=== PATIENT | female | born 1940 | race Caucasian/White ===

== ENCOUNTER 2018-09-01 05:37 | Day surgery (SDC) | payer OTHER, MEDICARE ==
[~2018-09-01] VITALS: Ht 160 cm; Wt 68.0 kg
[~2018-09-01 05:37] MED LIST: AMLODIPINE BESY10 MG PO; ARICEPT10 M1 PO; COZAAR100 MG PO; IFEREX 150150 MG PO; LOPRESSOR50 PO; MIRAPEX0.125 MG PO; PRINIVIL20 MG PO; PROTONIX40 M1 PO; TEMAZEPAM30 MG PO; ZOCOR20 MG PO
[2018-09-01 06:59] VITALS: BP 183/61
[2018-09-01] MEDS ORDERED: ASA5UEC PO (09:23)
[2018-09-01] MEDS ORDERED: NORCO 7.5-3251 EACH PO (09:23)
[2018-09-01 09:33] VITALS: BP 183/61
--- NOTE | 2018-09-03 17:30 | EKG ---
[place] [address] [place] [address] ELECTROCARDIOGRAM REPORT Name: ROSARIO CAMILO Room #: [facility]#: [id number] Admission: 09/01/18 Attend Phys: Guilherme Caicedo MD Discharge: 09/01/18 Date of : 44 Report #: [id number] THIS REPORT FOR: //name// [facility] Test Date: 2018-09-01 Test Time: 06:41:21 Pat Name: ROSARIO CAMILO Department: Room: 150 1 Gender: F Confectionery Maker: NGOC : 1940 Requested By: Sarahi Jj Order Number: [id number] MD: Osmin Clement Measurements Intervals [place] Rate: 40 P: 4 VT: 209 QRS: -20 QRSD: 175 T: 172 QT: 581 QTc: 474 Interpretive Statements Sinus bradycardia Left atrial enlargement Left bundle branch block No previous ECG available for comparison Electronically Signed On 09-03-2018 17:29:52 CDT by Osmin Clement [email or web address] <ELECTRONICALLY SIGNED> By: Osmin Clement MD 09/03/18 1729 D: 07/640 0 Osmin Clement MD /CELESTINA
--- NOTE | 2018-09-20 14:35 | O ---
[facility] [place] [address] OPERATIVE REPORT Name: ROSARIO CAMILO Room #: [facility].#: [id number] Admission: 09/01/18 Attend Phys: Guilherme Caicedo MD Discharge: 09/01/18 Date of : 44 Report #: [id number] THIS REPORT FOR: //name// CC: KRYSTIAN Caicedo Physician staff DATE OF SERVICE: 09/01/2018 PREOPERATIVE DIAGNOSES: 1. Right ankle osteoarthritis. 2. Right ankle retained hardware. POSTOPERATIVE DIAGNOSES: 1. Right ankle osteoarthritis. 2. Right ankle retained hardware. PROCEDURE: 1. Right ankle arthroscopic arthrodesis. 3. Right ankle hardware removal. SURGEON: Guilherme Caicedo M.D. VESSEL BUILDER: None. ANESTHESIA: General. ESTIMATED BLOOD LOSS: Minimal. DRAINS: No drains. TOURNIQUET TIME: 70 minutes. DESCRIPTION OF PROCEDURE: The patient was brought to the operating room where she was placed under general anesthesia. Once under adequate general anesthesia, her right lower extremity was placed into the arthroscopic thigh support. The right lower extremity was then prepped and draped in a sterile manner. The extremity was elevated, exsanguinated, tourniquet placed to 300 mmHg. A Guhl distractor was then placed across the joint. An anteromedial and anterolateral arthroscopic portal was then made in the usual fashion. Utilizing the arthroscopic shaver any remaining cartilage in the joint was removed. She had significant cartilage lost; however, already. Once removed, the bur arthroscopically was used to debride the joint to good bleeding subchondral bone. Once complete, the arthroscopic equipment was removed. The extremity was removed from the arthroscopic thigh support and a 1 cm incision was made over the distal tibia at the area of a large fragment screw. This screw was then [address] [address] OPERATIVE REPORT Name: TONROSARIO Josy [id number] Admission: 09/01/18 Attend Phys: Guilherme Caicedo MD Discharge: 09/01/18 Date of : 44 Report #: [id number] removed through the small 1 cm incision. Similarly at the distal fibula, a 1 cm incision was placed in order to remove a large Steinmann pin. Once these two were removed demineralized bone matrix allograft was placed through the medial arthroscopic portal into the joint and subsequent fixation across the joint with the joint held in a neutral dorsiflexion alignment was achieved with three 7.3 mm cannulated screws placed under fluoroscopic guidance, two were placed from medial and one placed from the lateral proximal tibia through three separate small incisions over the guidewire for the 7.3 mm cannulated screws. Fluoroscopy was used to verify the position to be excellent. The wounds were irrigated copiously and closed with 2-0 Vicryl in subcutaneous tissues and ron for the skin. The wounds were dressed with Xeroform, 4 x 4s and sterile soft compressive dressing with a short leg cast was placed. Tourniquet was let down at approximately 70 minutes. Toes were pink and warm with good capillary refill. There were no complications from the procedure. The patient tolerated the procedure well and went to the recovery room without incident. <ELECTRONICALLY SIGNED> By: Guilherme Caicedo MD 09/20/18 1435 0930 [id number] Guilherme Caicedo MD /nt
== END 2018-09-01 11:00 | disposition home or self-care (01) ==
LOC: OR 05:37 → TBA 05:37 → OR 10:21
DX: M19.071 Primary osteoarthritis, right ankle and foot (principal); T84.84XA Pain due to internal orthopedic prosthetic devices, implants and grafts, initial encounter; I10 Essential (primary) hypertension; Z87.891 Personal history of nicotine dependence; Z98.890 Other specified postprocedural states; Z88.0 Allergy status to penicillin; Z88.8 Allergy status to other drugs, medicaments and biological substances; Z79.82 Long term (current) use of aspirin; Z79.891 Long term (current) use of opiate analgesic; Z79.899 Other long term (current) drug therapy; Y83.8 Other surgical procedures as the cause of abnormal reaction of the patient, or of later complication, without mention of misadventure at the time of the procedure
CPT/HCPCS: 50010; 50020; 50101; 50386; 50951; 51038; 51412; 51647; 52120; 53400; 53404; 54170; 56524; 56526; 57091; 57103; 57180; 62110; 62900; 70005